=== PATIENT | female | born 1935 | race Caucasian/White ===

== ENCOUNTER 2019-05-19 05:09 | Emergency (ER) | payer OTHER ==
[~2019-05-19] VITALS: Ht 152.4 cm; Wt 68.0 kg
[2019-05-19 05:09] VITALS: BP_SYST 128
[~2019-05-19 05:09] MED LIST: ASA81 PO; HYDR-1189 PO; HYDR-4100 PO; LIP20 PO; METF-381 PO; OMEP20CA10 PO; SPIR25TA6 PO; SUVO15TA PO
[2019-05-19] MEDS ORDERED: ESCI20TA PO (05:28)
[2019-05-19] MEDS ORDERED: GLIP5TAB13 PO (05:28)
[2019-05-19] MEDS ORDERED: FURO-149 PO (05:29)
[2019-05-19] MEDS ORDERED: CANA300T PO (05:30)
[2019-05-19] MEDS ORDERED: PALB125C PO (05:30)
[2019-05-19] MEDS ORDERED: FEM2.5 PO (05:31)
[2019-05-19] MEDS ORDERED: MAGN500T2 PO (05:32)
[2019-05-19] MEDS ORDERED: CHOL500037 PO (05:33)
[2019-05-19] MEDS ORDERED: ACET-2634 PO (05:34)
[2019-05-19] MEDS ORDERED: LOPE2CAP PO (05:36)
[2019-05-19] MEDS ORDERED: ZOLE4VIA18 IV (05:37)
[2019-05-19 06:21] LABS: WHITE BLOOD COUNT (AUTO) 5.7 K/uL (4.8-10.8)
[2019-05-19 06:25] LABS: BASOPHILS % (AUTO) 0.3 % (0.0-2.0); HEMATOCRIT 35.6 % (36-48); HEMOGLOBIN 12.2 g/dL (12.0-16.0); LYMPHOCYTES # (AUTO) 1.6 K/uL (1.0-5.5); LYMPHOCYTES % (AUTO) 28.4 % (20.5-51.5); MEAN CORPUSCULAR HEMOGLOBIN 39 pg (27-31); MEAN CORPUSCULAR HGB CONC 34 % (32-36); MEAN CORPUSCULAR VOLUME 113 fL (79.0-98.0); MONOCYTES % (AUTO) 17.3 % (1.7-9.3); NEUTROPHILS # (AUTO) 3.1 K/uL (1.8-7.7); PLATELET COUNT (AUTO) 225 K/uL (130-430); RED BLOOD CELL COUNT(AUTO) 3.15 MIL/uL (4.2-6.2); RED CELL DISTRIBUTION WIDTH 17.2 % (9.0-15.0)
[2019-05-19 06:37] LABS: ANION GAP 12 (5-15); CALCIUM 8.9 mg/dL (8.4-11.0); CHLORIDE 93 mmol/L (98-107); CREATININE 1.89 mg/dL (0.55-1.30); GLUCOSE 233 mg/dL (70-99); POTASSIUM 3.4 mmol/L (3.5-5.1); SODIUM SERUM 132 mmol/L (136-145); UREA NITROGEN, BLOOD 15 mg/dL (8-21)
[2019-05-19 06:42] LABS: ALANINE AMINOTRANSFERASE 60 U/L (12-78); ASPARTATE AMINOTRANSFERASE 115 U/L (10-37); TOTAL BILIRUBIN 1.3 mg/dL (0.0-1.0)
[2019-05-19 07:00] LABS: BILIRUBIN,URINE NEGATIVE (NEGATIVE); BLOOD, URINE NEGATIVE (NEGATIVE); CLARITY/URINE CLEAR (CLEAR); COLOR,URINE YELLOW (YELLOW); GLUCOSE,URINE 3+ (NEGATIVE); KETONES,URINE TRACE (NEGATIVE); LEUKOCYTE ESTERASE ,URINE NEGATIVE (NEGATIVE); NITRITE, URINE NEGATIVE (NEGATIVE); PROTEIN URINE NEGATIVE (NEGATIVE); UROBILINOGEN,URINE 0.2 (0.2-1.0)
[2019-05-19 07:02] LABS: BACTERIA,URINE FEW /HPF (None Seen); MUCUS,URINE 1+ /LPF (None Seen); RBC,URINE 0-3 /HPF (0-3)
[2019-05-19 07:20] VITALS: BP_SYST 128
[2019-05-19 07:24] LABS: INR 1.1 (0.8-1.2); PROTHROMBIN TIME 11.3 SECS (9.5-12.5)
== END 2019-05-19 07:20 | disposition home or self-care (01) ==
LOC: SED 05:09
DX: S00.03XA Contusion of scalp, initial encounter (principal); E11.9 Type 2 diabetes mellitus without complications; I13.0 Hypertensive heart and chronic kidney disease with heart failure and stage 1 through stage 4 chronic kidney disease, or unspecified chronic kidney disease; N18.9 Chronic kidney disease, unspecified; E87.5 Hyperkalemia; W19.XXXA Unspecified fall, initial encounter; Y93.89 Activity, other specified; Y92.091 Bathroom in other non-institutional residence as the place of occurrence of the external cause; Y99.8 Other external cause status
CPT/HCPCS: 36415; 70450-TC; 71045; 80053; 81000-TC; 84484; 85025; 85610-TC; 85730-TC; 87086; 93005; 99284

== ENCOUNTER 2019-06-14 10:53 | Emergency (ER) | payer OTHER ==
[~2019-06-14] VITALS: Ht 157.5 cm; Wt 72.6 kg
[2019-06-14 10:53] VITALS: BP_SYST 119
[~2019-06-14 10:53] MED LIST changes: +ACET-2634 PO; +CANA300T PO; +CHOL500037 PO; +ESCI20TA PO; +FEM2.5 PO; +FURO-149 PO; +GLIP5TAB13 PO; -HYDR-1189 PO; -HYDR-4100 PO; +LOPE2CAP PO; +MAGN500T2 PO; -OMEP20CA10 PO; +PALB125C PO; -SUVO15TA PO; +ZOLE4VIA18 IV
--- NOTE | 2019-06-14 11:00 | NUR ---
BROUGHT IN BY [facility], PLACED IN BED #6 AND TRIAGED. REPORT GIVEN TO CJ
--- NOTE | 2019-06-14 11:01 | NUR ---
PT IS RESIDENT OF [facility].
--- NOTE | 2019-06-14 11:40 | NUR ---
ER at bedside examining patient.
--- NOTE | 2019-06-14 12:00 | NUR ---
Patient presented to C/O PAIN TO BACK OF HEAD. Patient awake, alert. Patient brought in by BLS from [facility] PER MEDICS, PT HAD UNWITNESSED FALL. Patient denies pain, denies N/v/D. Patient not able to provide health hx, patient not able to provide details of fall.
--- NOTE | 2019-06-14 14:50 | NUR ---
ER Dr. Gordon at bedside examining patient.
--- NOTE | 2019-06-14 15:00 | NUR ---
venipuncture at bedside
[2019-06-14 15:14] LABS: HEMATOCRIT 36.5 % (36-48); HEMOGLOBIN 12.3 g/dL (12.0-16.0); MEAN CORPUSCULAR HEMOGLOBIN 38 pg (27-31); MEAN CORPUSCULAR HGB CONC 34 % (32-36); MEAN CORPUSCULAR VOLUME 112 fL (79.0-98.0); PLATELET COUNT (AUTO) 117 K/uL (130-430); RED BLOOD CELL COUNT(AUTO) 3.26 MIL/uL (4.2-6.2); RED CELL DISTRIBUTION WIDTH 20.3 % (9.0-15.0); WHITE BLOOD COUNT (AUTO) 4.1 K/uL (4.8-10.8)
[2019-06-14 15:30] LABS: ALANINE AMINOTRANSFERASE 151 U/L (12-78); ALBUMIN 2.5 g/dL (3.4-4.8); ASPARTATE AMINOTRANSFERASE 394 U/L (10-37); CALCIUM 8.3 mg/dL (8.4-11.0); CHLORIDE 94 mmol/L (98-107); CREATININE 2.15 mg/dL (0.55-1.30); GLUCOSE 162 mg/dL (70-99); POTASSIUM 3.3 mmol/L (3.5-5.1); SODIUM SERUM 132 mmol/L (136-145); TOTAL BILIRUBIN 0.9 mg/dL (0.0-1.0); UREA NITROGEN, BLOOD 43 mg/dL (8-21)
[2019-06-14 15:41] LABS: ANION GAP 11 (5-15)
[2019-06-14 15:50] VITALS: BP_SYST 119
--- NOTE | 2019-06-14 15:50 | NUR ---
Patient given written and verbal discharge instructions and verbalizes understanding. ER MD discussed with patient the results and treatment provided. Patient in stable condition. ID arm band removed. No Rx given. Patient educated on pain management and to follow up with PMD. Pain Scale0/10 . Opportunity for questions provided and answered. Medication side effect fact sheet provided.
[2019-06-14 16:50] LABS: BAND % (MANUAL) 2 % (0-6); BASOPHILS % (MANUAL) 0 % (0-2); EOSINOPHILS % (MANUAL) 0 % (0-7); LYMPHOCYTES % (MANUAL) 54 % (20-46); MONOCYTES % (MANUAL) 10 % (0-11)
== END 2019-06-14 15:50 | disposition home or self-care (01) ==
LOC: SED 10:53
DX: S09.90XA Unspecified injury of head, initial encounter (principal); I10 Essential (primary) hypertension; E11.9 Type 2 diabetes mellitus without complications; J44.9 Chronic obstructive pulmonary disease, unspecified; Z88.0 Allergy status to penicillin; Z79.84 Long term (current) use of oral hypoglycemic drugs; Z79.82 Long term (current) use of aspirin; Z79.899 Other long term (current) drug therapy; W19.XXXA Unspecified fall, initial encounter; Y93.89 Activity, other specified; Y92.89 Other specified places as the place of occurrence of the external cause; Y99.8 Other external cause status
CPT/HCPCS: 36415; 70450-TC; 80053; 82378; 85007; 85027; 99284

== ENCOUNTER 2019-06-17 09:41 | Inpatient (IN) | payer OTHER ==
[~2019-06-17] VITALS: Ht 152.4 cm; Wt 62.2 kg
[2019-06-17] MEDS ORDERED: NACL 0.9% 1,000 ML IV ONE (09:43)
[2019-06-17 09:45] VITALS: BP_SYST 136
--- NOTE | 2019-06-17 09:45 | NUR ---
Placed in room 2 . Placed on compliance monitor, blood pressure machine and pulse oximeter. To gown for exam. Side rails up. Assumed care.
--- NOTE | 2019-06-17 09:55 | NUR ---
Patient arrived via [facility] ambulance, patient calm and cooperative. Sent by [facility] with c/c of hyperglycemia. Upon report, patient was found on floor s/p assumed fall. Patient unable to recall falling. Glucose was checked at it was >400mg/dl. Patient glucose level was checked upon arrival at 210mg/dl. Patient AAO. Patient has pitting edema to bilateral lower extremities. Will continue to follow up and monitor.
[2019-06-17] MEDS ORDERED: INSULIN REGULAR, HUMAN 10 UNITS/0.1 ML INJ IVP ONE (10:00)
--- NOTE | 2019-06-17 10:00 | NUR ---
ER at bedside examining patient.
[2019-06-17 10:25] LABS: BASOPHILS % (AUTO) 0.5 % (0.0-2.0); EOSINOPHILS % (AUTO) 0.2 % (0.0-4.0); HEMATOCRIT 37.8 % (36-48); HEMOGLOBIN 12.8 g/dL (12.0-16.0); LYMPHOCYTES # (AUTO) 3.1 K/uL (1.0-5.5); LYMPHOCYTES % (AUTO) 39.6 % (20.5-51.5); MEAN CORPUSCULAR HEMOGLOBIN 38 pg (27-31); MEAN CORPUSCULAR HGB CONC 34 % (32-36); MEAN CORPUSCULAR VOLUME 112 fL (79.0-98.0); MONOCYTES # (AUTO) 1.1 K/uL (0.0-1.0); MONOCYTES % (AUTO) 14.6 % (1.7-9.3); NEUTROPHILS # (AUTO) 3.5 K/uL (1.8-7.7); NEUTROPHILS % (AUTO) 45.1 % (40.0-70.0); PLATELET COUNT (AUTO) 130 K/uL (130-430); RED BLOOD CELL COUNT(AUTO) 3.39 MIL/uL (4.2-6.2); RED CELL DISTRIBUTION WIDTH 20.7 % (9.0-15.0); WHITE BLOOD COUNT (AUTO) 7.8 K/uL (4.8-10.8)
--- NOTE | 2019-06-17 10:35 | NUR ---
# 14 FR In and Out catheter with use of sterile technique. Immediate return of 800 ml Dark yellow slighty cloudy urine noted. Urine sample collected and sent to lab. Pt tolerated procedure well.
[2019-06-17 10:36] LABS: ANION GAP 12 (5-15); CALCIUM 9.2 mg/dL (8.4-11.0); CHLORIDE 91 mmol/L (98-107); CREATININE 2.11 mg/dL (0.55-1.30); GLUCOSE 193 mg/dL (70-99); SODIUM SERUM 128 mmol/L (136-145); UREA NITROGEN, BLOOD 39 mg/dL (8-21)
[2019-06-17 10:40] LABS: INR 1.3 (0.8-1.2); PROTHROMBIN TIME 12.9 SECS (9.5-12.5)
[2019-06-17 10:42] LABS: ALANINE AMINOTRANSFERASE 206 U/L (12-78); ALBUMIN 2.6 g/dL (3.4-4.8); AMYLASE 60 U/L (0-100); ASPARTATE AMINOTRANSFERASE 489 U/L (10-37); LIPASE 206 U/L (73-393); TOTAL BILIRUBIN 1.6 mg/dL (0.0-1.0)
[2019-06-17 10:45] LABS: ALCOHOL, BLOOD < 3 mg/dL (<10); POTASSIUM 2.6 mmol/L (3.5-5.1)
--- NOTE | 2019-06-17 10:45 | NUR ---
Patient taken to CT scan via [place], escorted by tech. Patient calm and cooperative. Will continue to follow up upon return to room.
--- NOTE | 2019-06-17 10:55 | NUR ---
Patient arrived back to room, patient placed on quality assurance monitor final and patient has no complaints at this time. Will continue to follow up and monitor.
[2019-06-17 11:00] LABS: BILIRUBIN,URINE NEGATIVE (NEGATIVE); BLOOD, URINE 2+ (NEGATIVE); CLARITY/URINE CLEAR (CLEAR); COLOR,URINE YELLOW (YELLOW); GLUCOSE,URINE 3+ (NEGATIVE); KETONES,URINE NEGATIVE (NEGATIVE); LEUKOCYTE ESTERASE ,URINE NEGATIVE (NEGATIVE); NITRITE, URINE NEGATIVE (NEGATIVE); PROTEIN URINE 1+ (NEGATIVE); UROBILINOGEN,URINE 0.2 (0.2-1.0)
[2019-06-17] MEDS ORDERED: POTASSIUM CHLORIDE 20 MEQ TAB.PRT.SR PO ONE (11:00)
[2019-06-17] MEDS ORDERED: KCL 20 mEq in 100 mL (PREMIX) 100 ML IV ONE (11:00)
[2019-06-17 11:13] LABS: CKMB RELATIVE INDEX 0.2 (0.0-2.9); CREATINE KINASE MB 1.5 ng/mL (0-3.6)
[2019-06-17 11:20] LABS: BACTERIA,URINE FEW /HPF (None Seen); BARBITURATE, URINE NEGATIVE (NEG <=200); BENZODIAZEPINE, URINE NEGATIVE (NEG <=150); CANNABINOID, URINE NEGATIVE (NEG <=50); COCAINE, URINE NEGATIVE (NEG <=150); METHAMPHETAMINES SCREEN,URINE NEGATIVE (NEG <=500); MUCUS,URINE 1+ /LPF (None Seen); OPIATE, URINE NEGATIVE (NEG <=100); PHENCYCLIDINE SCREEN,URINE NEGATIVE (NEG <=25); UR TRICYCLIC ANTIDEPRESSANTS NEGATIVE (NEG <=300); URINE AMPHETAMINE NEGATIVE (NEG <=500); URINE METHADONE NEGATIVE (NEG <=200); URINE OXYCODONE SCREEN NEGATIVE (NEG <=100); URINE PROPOXYPHENE SCREEN NEGATIVE (NEG <=300)
[2019-06-17] MEDS ORDERED: POTASSIUM CHLORIDE 20 MEQ/PKT PACKET ONE (11:29)
[2019-06-17] MEDS ORDERED: NACL 0.9% 2,000 ML IV ONE (11:45)
[2019-06-17] MEDS ORDERED: LEVOFLOXACIN 500 MG/D5W 100 ML IV ONE (11:45)
--- NOTE | 2019-06-17 12:00 | NUR ---
Orders recieved from Dr. Kenji Dubose, orders entered by JOJO.
--- NOTE | 2019-06-17 12:07 | NUR ---
Patient will be admitted to care of DR. Kenji AGUIRRE. Admitted to Telemetry unit. Will go to room 132A. Belongings list completed. Summary report printed. Report will be given at bedside.
[2019-06-17] MEDS ORDERED: ONDANSETRON HCL 4 MG/2 ML VIAL IVP PRN (12:15)
[2019-06-17] MEDS ORDERED: ACETAMINOPHEN 325 MG TABLET PO PRN (12:15)
[2019-06-17] MEDS ORDERED: ALBUTEROL SULFATE 0.083% 2.5 MG/3 ML VIAL.NEB INH PRN (12:15)
[2019-06-17 12:28] VITALS: BP_SYST 122
[2019-06-17 12:46] VITALS: BP_SYST 127
--- NOTE | 2019-06-17 12:46 | NUR ---
ADMISSION NOTE Received patient from ER via jude, received report from MAHESH URIBE. Patient admitted with diagnosis of PNEUMONIA/CHF. Patient oriented to hospital routine, call light, toileting and safety-patient verbalized understanding.
--- NOTE | 2019-06-17 13:01 | NUR ---
CONSULTATION PAGED/CALLED Reason for Consultation: [] CHF Person Who was Notified: [] LEATHA Consulting Physician: [] DR LI Content Checker Specialty: [] CARDIOLOGY Ordering Physician: [] DR Angie AGUIRRE
--- NOTE | 2019-06-17 13:04 | NUR ---
CONSULTATION PAGED/CALLED Reason for Consultation: [] CHF, SOB, PNA Person Who was Notified: [] DYLAN Consulting Physician: [] DR Adán STRONG Supervisory Forester Specialty: [] PULMONOLOGY Ordering Physician: [] DR Angie AGUIRRE
--- NOTE | 2019-06-17 13:06 | NUR ---
CONSULTATION PAGED/CALLED Reason for Consultation: [] CHF Person Who was Notified: [] DYLAN Consulting Physician: [] DR SHAH DIGITAL COORDINATOR FOR DR TAYLOR Process Coordinator Specialty: [] NEPHROLOGY Ordering Physician: [] DR Angie AGUIRRE
[2019-06-17] MEDS ORDERED: D5W 1,000 ML IV PRN (13:15)
[2019-06-17] MEDS ORDERED: DEXTROSE 50%-WATER 50 ML DISP.SYRIN IVP PRN (13:15)
[2019-06-17] MEDS ORDERED: GLUCOSE 15 GM GEL (in 37.5 GM TUBE) PO PRN (13:15)
--- NOTE | 2019-06-17 13:20 | NUR ---
patient came alert awake x 1-2. but confused. breathing even and unlabored. lungs bilaterally diminished at the bases. on room air. O2Sat 94%. vitals signs stable. afebrile. abdomen soft and non distended. has 2 two iv accesses at the right forearm #22. w/ potassium iv hanging at 40cc/hr infusing on well. and left ac #20 has iv fluids of Normal Saline at 100cc/hr infusing on well. w/levaquin iv antibiotic started in ER.son at the bedside. bed low position, alarmed and locked. call lights within reach. son at the bedside. admission data, assessment was completed. and documented
[2019-06-17 13:35] LABS: CKMB RELATIVE INDEX 0.2 (0.0-2.9); CREATINE KINASE MB 1.6 ng/mL (0-3.6)
--- NOTE | 2019-06-17 14:30 | NUR ---
Azithromycin iv antibiotic hanged at this time.
[2019-06-17] MEDS: AZITHROMYCIN 500 MG in NS 250 ML IV SCH (14:46)
[2019-06-17 15:03] VITALS: BP_SYST 109
--- NOTE | 2019-06-17 15:30 | NUR ---
rocephin iv antibiotic given.
[2019-06-17] MEDS: cefTRIAXone 1 GM in D5W 50 ML IV SCH (15:55)
--- NOTE | 2019-06-17 16:15 | NUR ---
turn to sides. and apply z guard on the vaginal area redness and buttocks right and left areas.
[2019-06-17 17:02] VITALS: BP_SYST 114
--- NOTE | 2019-06-17 18:18 | NUR ---
family at the bedside. patient refused to eat the food tray, she wants salad and juice and water, cranberry, jello red. hob elevated
--- NOTE | 2019-06-17 18:28 | NUR ---
still on desk monitor sinus rthythm 80-90's. no ectopy noted. will continue to monitor patients status.
--- NOTE | 2019-06-17 18:29 | NUR ---
please follow up consult x 3.
--- NOTE | 2019-06-17 18:53 | NUR ---
dr tinoco as cardiology consult came and evaluate the patient.
--- NOTE | 2019-06-17 19:25 | NUR ---
sbar report given to Prema URIBE
--- NOTE | 2019-06-17 19:46 | NUR ---
OPENING NOTE Received patient resting in bed, w/ eyes closed and presently calm. No sign of distress, non-labored breathing on room air. IV to LFA is SL. Bed is locked to lowest position, side rails up 3x, bed alarm on and call light w/in reach. Updated board.
[2019-06-17 20:00] VITALS: BP_SYST 123
[2019-06-17 20:51] LABS: CKMB RELATIVE INDEX 0.3 (0.0-2.9); CREATINE KINASE MB 1.4 ng/mL (0-3.6)
--- NOTE | 2019-06-17 21:20 | NUR ---
Patient care Patient had bowel movement and assisted nurse assistant broker with stanley-care, bed bath, and linen change. Patient was cooperative. Resting in comfortable position. I remain in room with patient.
--- NOTE | 2019-06-17 21:39 | NUR ---
Dr. Schwartz rounds Dr. Schwartz is at bedside to see patient. He reviewed chart and ordered Normal Saline at 30 ml/hr.
[2019-06-17] MEDS: INSULIN LISPRO SLIDING SCALE 100 UNITS/ML VIAL (humaLOG) SUBCUT PRN (21:50)
--- NOTE | 2019-06-17 21:51 | NUR ---
Fingerstick BG test FBG test done with result of 185mg/dL. Administered 2units of insulin per sliding scale order. Patient cooperated and tolerated.
--- NOTE | 2019-06-17 22:35 | NUR ---
IVF IVF fluid, NS infusing at 30 ml/hr, as ordered by Dr. Schwartz. IV site on LAC alarmed frequently d/t patient bending arm and presently infusing via IV on RFA.
[2019-06-18] MEDS: NACL 0.9% 1,000 ML IV SCH ×2 (00:05→22:30)
[2019-06-18 00:23] VITALS: BP_SYST 116
--- NOTE | 2019-06-18 00:24 | NUR ---
Rounds Patient momentarily awakened, repositioned for comfort. IVF infusing well. Non labored breathing, will continue to monitor.
--- NOTE | 2019-06-18 02:30 | NUR ---
IV alarming IV alarming, tubing bent/kinked, it was straightened out. Patient repositioned, patient is cooperative and denies pain. No further needs at this time.
--- NOTE | 2019-06-18 04:30 | NUR ---
Methane Gas Collection System Operator Methane Gas Collection System Operator at bedside for lab draw. Patient voiced discomfort, though tolerated and cooperated.
--- NOTE | 2019-06-18 06:24 | NUR ---
PAGED DR. SHAH PER NURSE DIALED [phone] SPOKE TO CAROLYN
--- NOTE | 2019-06-18 06:29 | NUR ---
Dr. Schwartz S/W Dr. Schwartz, notified, patient incontinent and unable to collect UA sample, gave order for straight cath, read-back.
--- NOTE | 2019-06-18 06:29 | NUR ---
Fingerstick BG test FBG test done with result of 95mg/dL. no insulin per sliding scale order. Patient cooperated and tolerated.
[2019-06-18 06:36] LABS: ALANINE AMINOTRANSFERASE 152 U/L (12-78); ALBUMIN 1.8 g/dL (3.4-4.8); ANION GAP 6 (5-15); ASPARTATE AMINOTRANSFERASE 338 U/L (10-37); CALCIUM 8.4 mg/dL (8.4-11.0); CHLORIDE 101 mmol/L (98-107); CHOLESTEROL 83 mg/dL (<200); CREATININE 1.53 mg/dL (0.55-1.30); GLUCOSE 86 mg/dL (70-99); HDL CHOLESTEROL 17 mg/dL (>55); LDL CHOLESTEROL 49 mg/dL (<100); SODIUM SERUM 134 mmol/L (136-145); TRIGLYCERIDES 77 mg/dL (30-150); UREA NITROGEN, BLOOD 28 mg/dL (8-21)
--- NOTE | 2019-06-18 06:40 | NUR ---
CLOSING NOTE Patient resting in bed, w/ eyes closed and presently calm. No sign of distress, non-labored breathing on room air. IV to LAC is SL. IVF infusing well via RFA. Bed is locked to lowest position, side rails up 3x, bed alarm on and call light w/in reach. Direct observer is in room with patient.
--- NOTE | 2019-06-18 07:10 | NUR ---
Nutrition Update Dalton Scale 14 noted. Pt admitted for Pneumonia and Congestive Heart Failure Diet: Cardiac Low CHOL Low Fat 2gm Na BMI: 26.3 kg/m2 RD to follow per nutrition care standards.
[2019-06-18 07:24] VITALS: BP_SYST 104
--- NOTE | 2019-06-18 07:35 | NUR ---
OPENING NOTES: RECEIVED PATIENT FROM CUSTOMER EXPERIENCE INTERN NURSE. PATIENT IS ASLEEP IN BED. NO SIGNS OF DISTRESS OR SHORTNESS OF BREATH NOTED. IV SITE IS PATENT WITH NO SIGNS OF INFILTRATION. PATIENT IS TOLERATING OXYGEN AT ROOM AIR. PATIENT IN STABLE CONDITION. SAFETY AND FALL PRECAUTIONS ARE IN PLACE. BED LOCKED IN LOWEST POSITION WITH CALL LIGHT IN REACH. WILL CONTINUE TO MONITOR PATIENT FOR ANY CHANGES.
[2019-06-18 09:25] LABS: HEMATOCRIT 31.4 % (36-48); HEMOGLOBIN 10.7 g/dL (12.0-16.0); MEAN CORPUSCULAR HEMOGLOBIN 38 pg (27-31); MEAN CORPUSCULAR HGB CONC 34 % (32-36); PLATELET COUNT (AUTO) 109 K/uL (130-430); RED BLOOD CELL COUNT(AUTO) 2.78 MIL/uL (4.2-6.2); RED CELL DISTRIBUTION WIDTH 20.8 % (9.0-15.0); WHITE BLOOD COUNT (AUTO) 6.6 K/uL (4.8-10.8)
[2019-06-18 09:27] LABS: MEAN CORPUSCULAR VOLUME 113 fL (79.0-98.0)
[2019-06-18 09:49] LABS: ATYPICAL LYMPHOCYTES % 0 % (0-0); BAND % (MANUAL) 3 % (0-6); BASOPHILS % (MANUAL) 0 % (0-2); EOSINOPHILS % (MANUAL) 0 % (0-7); LYMPHOCYTES % (MANUAL) 30 % (20-46); MONOCYTES % (MANUAL) 11 % (0-11); MYELOCYTES % 1 % (0-0)
[2019-06-18] MEDS ORDERED: POTASSIUM CHLORIDE 20 MEQ TAB.PRT.SR PO ONE (10:00)
[2019-06-18] MEDS: ASPIRIN 81 MG TAB.CHEW PO SCH (10:04)
[2019-06-18] MEDS: ENOXAPARIN SODIUM 30 MG/0.3 ML SYRINGE SUBCUT SCH (10:05)
--- NOTE | 2019-06-18 10:44 | NUR ---
RN ROUNDS: PATIENT IS AWAKE AND ALERT x2 IN BED. PATIENT DENIES ANY PAIN. NO SIGNS OF DISTRESS OR SHORTNESS OF BREATH NOTED. PATIENT IN STABLE CONDITION. WILL CONTINUE TO MONITOR PATIENT FOR ANY CHANGES.
[2019-06-18 11:27] VITALS: BP_SYST 108
[2019-06-18] MEDS: INSULIN LISPRO SLIDING SCALE 100 UNITS/ML VIAL (humaLOG) SUBCUT PRN ×2 (11:56→21:57)
--- NOTE | 2019-06-18 12:25 | NUR ---
RN ROUNDS: PATIENT IS ASLEEP IN BED. NO SIGNS OF DISTRESS OR SHORTNESS OF BREATH NOTED. PATIENT IS TOLERATING OXYGEN AT ROOM AIR. PATIENT IN STABLE CONDITION. WILL CONTINUE TO MONITOR PATIENT FOR ANY CHANGES.
[2019-06-18 13:00] VITALS: BP_SYST 113
--- NOTE | 2019-06-18 14:20 | NUR ---
RN ROUNDS: PATIENT IS ASLEEP IN BED. NO SIGNS OF DISTRESS OR SHORTNESS OF BREATH NOTED. PATIENT IN STABLE CONDITION. WILL CONTINUE TO MONITOR PATIENT FOR ANY CHANGES.
[2019-06-18] MEDS: AZITHROMYCIN 500 MG in NS 250 ML IV SCH (14:53)
[2019-06-18] MEDS: cefTRIAXone 1 GM in D5W 50 ML IV SCH (15:39)
[2019-06-18 17:18] VITALS: BP_SYST 108
--- NOTE | 2019-06-18 18:55 | NUR ---
CLOSING NOTES: PATIENT IS AWAKE AND ALERT x2 IN BED. FAMILY AT BEDSIDE. NO SIGNS OF DISTRESS OR SHORTNESS OF BREATH NOTED. IV SITE IS PATENT WITH NO SIGNS OF INFILTRATION. PATIENT IS TOLERATING OXYGEN AT ROOM AIR. PATIENT IN STABLE CONDITION. SAFETY AND FALL PRECAUTIONS ARE IN PLACE. BED LOCKED IN LOWEST POSITION WITH CALL LIGHT IN REACH. WILL ENDORSE PATIENT TO ONCOMING COLD MEAT CHEF NURSE.
--- NOTE | 2019-06-18 19:30 | NUR ---
Opening notes Received report. Patient is resting in bed. No signs of distress noted. Breathing even and unlabored. IV patent and intact, infusing fluids. Daughter Gabriela and Son Carl at the bedside and updated on plan of care. Call light with the patient. Safety precautions in place.
[2019-06-18 19:59] VITALS: BP_SYST 121
--- NOTE | 2019-06-18 21:55 | NUR ---
Accucheck 289 insulin given per sliding scale. No signs of allergic reaction noted. No other needs. Call light with the patient. Safety precautions in place.
[2019-06-18 22:28] LABS: URINE SODIUM, RANDOM 9 mmol/L (40-220)
[2019-06-19] MEDS: NACL 0.9% 1,000 ML IV SCH (00:36)
--- NOTE | 2019-06-19 00:41 | NUR ---
Sleeping Patient sleeping. No signs of distress noted. Breathing even and unlabored. New bag of IVF hung. Call light with the patient. Safety precautions in place.
[2019-06-19 01:21] VITALS: BP_SYST 118
--- NOTE | 2019-06-19 02:24 | NUR ---
Awake Patient is awake, resting comfortably in bed. No signs of distress noted. Breathing even and unlabored. IVF infusing well. No needs at this time. Call light with the patient. Safety precautions in place.
--- NOTE | 2019-06-19 04:30 | NUR ---
Resting Patient resting in bed. Hygiene care provided. Patient tolerated well. No signs of distress noted. Breathing even and unlabored. Call light with the patient. Safety precautions in place.
--- NOTE | 2019-06-19 05:47 | NUR ---
IV on RFA removed Catheter tip is intact and discarded. No active bleeding noted. IV on LAC is patent and intact, flushes well. IVF resumed. Patient complains "My stomach hurts." Offered patient pain medicine. Patient states "I will wait." No other needs. Call light with the patient. Safety precautions in place.
[2019-06-19] MEDS: INSULIN LISPRO SLIDING SCALE 100 UNITS/ML VIAL (humaLOG) SUBCUT PRN ×4 (06:11→21:22)
--- NOTE | 2019-06-19 06:24 | NUR ---
Closing notes Patient resting in bed. No signs of distress noted. Breathing even and unlabored. IV patent and intact, infusing fluids. Accucheck 155. Insulin given per sliding scale. Provided patient with snack until breakfast arrives. All needs met through out the shift. Call light with the patient. Safety precautions in place. Will endorse care to day shift RN.
--- NOTE | 2019-06-19 07:35 | NUR ---
Opening note Patient resting in bed at this time, A/Ox2, no complaints of pain. No SOB. Iv patent, intact and infusing fluids as ordered. no adverse side effects noted. No infiltration noted. On safety and aspiration precautions, HOB kept elevated, bed alarm on, bed in lowest position, 3 side rails up. Call light within reach. Patient in stable condition. Will continue to monitor.
[2019-06-19 08:30] VITALS: BP_SYST 137
--- NOTE | 2019-06-19 09:30 | NUR ---
Medications All morning medications given as ordered. No adverse side effects noted. No nausea, no vomiting noted.
[2019-06-19] MEDS: ASPIRIN 81 MG TAB.CHEW PO SCH (09:33)
[2019-06-19] MEDS: ENOXAPARIN SODIUM 30 MG/0.3 ML SYRINGE SUBCUT SCH (09:33)
--- NOTE | 2019-06-19 11:20 | NUR ---
Physical therapy patient ambulated with walker, and minimal assistance with PT. Patient only able to walk few steps from the bed to the bedside chair.
[2019-06-19 12:30] VITALS: BP_SYST 125
--- NOTE | 2019-06-19 13:30 | NUR ---
Lunch Patient sitting up in bed at this time, eating lunch. Tolerating well. no nausea, no vomiting noted.
[2019-06-19] MEDS: AZITHROMYCIN 500 MG in NS 250 ML IV SCH (13:40)
--- NOTE | 2019-06-19 13:41 | NUR ---
Dietitian Recommendations * Recommend advancing to cardiac [facility] diet and supplement Glucerna BID (440 kcal/day and 20 gm protein /day). * Encourage PO intake. Please see Nutritional Assessment for details. BAM, RD
--- NOTE | 2019-06-19 14:00 | NUR ---
IV infiltration Iv infiltrated. New IV placed on right wrist gauge 22.
[2019-06-19] MEDS: cefTRIAXone 1 GM in D5W 50 ML IV SCH (15:02)
[2019-06-19 16:00] VITALS: BP_SYST 132
--- NOTE | 2019-06-19 16:04 | NUR ---
Linen changed Linens changed, skin care provided. No complaints of pain. Patient resting comfortably in bed. No SOB.
--- NOTE | 2019-06-19 18:15 | NUR ---
Closing note Patient sitting up in bed at this time, eating dinner. No nausea, no vomiting. No complaints of abdominal discomfort. No complaints of pain. No SOB. Iv patent, intact. no adverse side effects noted. No infiltration noted. On safety and aspiration precautions, HOB kept elevated, bed alarm on, bed in lowest position, 3 side rails up. Call light within reach.Patient awaiting discharge. Patient to be discharged once bed is available at SNF. Patient in stable condition. All needs met.
--- NOTE | 2019-06-19 19:30 | NUR ---
Opening notes Received report. Patient is resting in bed, no signs of distress noted. Breathing even and unlabored. IV patent and intact, saline locked. Patient ambulated to bathroom with minimal assist using walker. Daughter Gabriela and Son Carl are bedside. Updated on plan of care. Call light with the patient. Safety precautions in place.
[2019-06-19 20:00] VITALS: BP_SYST 130
--- NOTE | 2019-06-19 21:30 | NUR ---
Accucheck 258 Insulin given per sliding scale. Patient tolerated well. No adverse effects noted. No other needs. Call light with the patient. Safety precautions in place.
--- NOTE | 2019-06-19 22:50 | NUR ---
Patient moved to 120A Patient and patient belongings moved to 120A. Patient tolerated well. No signs of distress noted. Call light with the patient. Safety precautions in place.
[2019-06-20] VITALS (7 sets, daily range): BP systolic 122–129
--- NOTE | 2019-06-20 00:30 | NUR ---
Sleeping No signs of distress noted. Breathing even and unlabored. Call light with the patient. Safety precautions in place.
--- NOTE | 2019-06-20 02:30 | NUR ---
Sleeping Patient repositioned to comfort. No signs of distress noted. Breathing even and unlabored. Call light with the patient. Safety precautions in place.
--- NOTE | 2019-06-20 04:47 | NUR ---
Sleeping No signs of distress noted. Breathing even and unlabored. IV patent and intact, no signs of infiltration noted. Call light with the patient. Safety precautions in place.
[2019-06-20 06:32] LABS: BASOPHILS # (AUTO) 0.1 K/uL (0.0-0.2); BASOPHILS % (AUTO) 0.9 % (0.0-2.0); EOSINOPHILS # (AUTO) 0.1 K/uL (0.0-0.4); EOSINOPHILS % (AUTO) 0.7 % (0.0-4.0); HEMATOCRIT 34.7 % (36-48); HEMOGLOBIN 11.6 g/dL (12.0-16.0); LYMPHOCYTES # (AUTO) 2.7 K/uL (1.0-5.5); LYMPHOCYTES % (AUTO) 34.2 % (20.5-51.5); MEAN CORPUSCULAR HEMOGLOBIN 38 pg (27-31); MEAN CORPUSCULAR HGB CONC 34 % (32-36); MEAN CORPUSCULAR VOLUME 112 fL (79.0-98.0); MONOCYTES # (AUTO) 0.7 K/uL (0.0-1.0); MONOCYTES % (AUTO) 9.4 % (1.7-9.3); NEUTROPHILS # (AUTO) 4.3 K/uL (1.8-7.7); NEUTROPHILS % (AUTO) 54.8 % (40.0-70.0); PLATELET COUNT (AUTO) 107 K/uL (130-430); RED CELL DISTRIBUTION WIDTH 21.1 % (9.0-15.0); WHITE BLOOD COUNT (AUTO) 7.8 K/uL (4.8-10.8)
[2019-06-20] MEDS: INSULIN LISPRO SLIDING SCALE 100 UNITS/ML VIAL (humaLOG) SUBCUT PRN ×4 (06:40→21:17)
--- NOTE | 2019-06-20 06:45 | NUR ---
Closing notes Patient resting comfortably in bed. No signs of distress noted. Breathing even and unlabored. IV patent and intact, no signs of infiltration noted. Accucheck 163. Insulin given per sliding scale. Snack provided to patient. All needs met throughout the shift. Call light with the patient. Safety precautions in place. Will endorse care to day shift RN.
[2019-06-20 07:06] LABS: ALANINE AMINOTRANSFERASE 163 U/L (12-78); ALBUMIN 1.8 g/dL (3.4-4.8); ANION GAP 10 (5-15); ASPARTATE AMINOTRANSFERASE 343 U/L (10-37); CALCIUM 9.4 mg/dL (8.4-11.0); CHLORIDE 106 mmol/L (98-107); CREATININE 1.37 mg/dL (0.55-1.30); GLUCOSE 164 mg/dL (70-99); POTASSIUM 3.7 mmol/L (3.5-5.1); SODIUM SERUM 139 mmol/L (136-145); UREA NITROGEN, BLOOD 20 mg/dL (8-21)
--- NOTE | 2019-06-20 08:00 | NUR ---
Note Pt assisted in sitting up bed for breakfast. No SOB/resp distress or pain/discomfort noted at this time. IV in right wrist intact and patent at this time. No needs noted. Call light within reach. Pt is next to nurses' station for close observation for needs and care.
[2019-06-20] MEDS: ASPIRIN 81 MG TAB.CHEW PO SCH (08:42)
[2019-06-20] MEDS: ENOXAPARIN SODIUM 30 MG/0.3 ML SYRINGE SUBCUT SCH (08:43)
--- NOTE | 2019-06-20 12:00 | NUR ---
Note Pt worked with PT - tolerated PT well. Pt resting sitting up in bed. No SOB/resp distress or pain/discomfort noted at this time. Call light within reach.
[2019-06-20] MEDS: AZITHROMYCIN 500 MG in NS 250 ML IV SCH (13:28)
[2019-06-20] MEDS: cefTRIAXone 1 GM in D5W 50 ML IV SCH (14:33)
--- NOTE | 2019-06-20 15:00 | NUR ---
Note Pt resting in bed - no needs noted at this time. Call light within reach.
--- NOTE | 2019-06-20 18:25 | NUR ---
Note Pt sitting up in bed eating her dinner. Pt was checked on q1' and PRN all shift for needs and care. No SOB/resp distress or pain/discomfort noted at this time. No needs noted at this time. Pt tries to get OOB - pt has been next to nurses' station all shift for close observation for needs and care. Pt maintained with safety precautions all shift. No needs noted all shift. Call light within reach.
--- NOTE | 2019-06-20 19:15 | NUR ---
change of shift.pt.presents quiescent affect;calm,somnolent.pt.arousable.pt.presents loc;confused.speech status;slurred;garbled. i access;intact.general status stable.respiratory status stable;unlabored @room air.call light/telephone w/in reach of the pt.
--- NOTE | 2019-06-20 20:00 | NUR ---
pt.assessed.v/s assessed:values w/in normal limits.pain mgx;flacc;pt.absent facial grimaces/body posturing.iv access intact;patent:lock. pt.assessed for cleanliness.pt.repositioned.general status stable.respiratory status stable;unlabored;02-sat%=96%@ room air.call light/ telephone placed w/in reach of the pt.family@bedside.
--- NOTE | 2019-06-20 20:30 | NUR ---
i have assessed the blood glucose;value;272mg/dl.
--- NOTE | 2019-06-20 21:00 | NUR ---
2100pmedications;no medications scheduled@this hour.i have administered insulin;humalo-units per the parameters sliding scale.
--- NOTE | 2019-06-20 22:00 | NUR ---
pt.assessed.pt.presents quiescent affect;calm,somnolent.pt.assessed for cleanliness.pt.repositioned.iv access;intact;patent; lock. general status stable.respiratory status stable;unlabored:02-sat%=96%.call light/telephone placed w/in reach of the pt.
--- NOTE | 2019-06-21 | NUR ---
pt.assessed.v/s assessed;values w/in normal limits.pt.assessed for cleanliness.pt.repositioned.iv access intact;patent. general status stable.respiratory status stable;unlabored;02-sat%=96%.call light/telephone placed w/in reach of the pt.
--- NOTE | 2019-06-21 02:00 | NUR ---
pt.assessed.pt.presents quiescent affect;calm,somnolent.pt.assessed for cleanliness.pt.repositioned.iv access intact;patent. general status stable.respiratory status stable unlabored:02-sat%=96%.call light/telephone placed w/in reach of the pt.
--- NOTE | 2019-06-21 04:00 | NUR ---
pt.assessed.pt.presents quiescent affect;clam,somnolent.pt.passed for cleanliness.pt.repositioned. iv access;intact;patent. general status stable.respiratory status stable.call light/telephone placed w/in reach of the pt.
--- NOTE | 2019-06-21 06:37 | NUR ---
pt assessed.pt.presents quiescent affect;calm,somnolent.pt.assessed for cleanliness.pt.cleaned.pt.repositioned.iv access intact;patent;lock. i have attended to the wound care;placed opti-foam dsgs x4 sites.general status stable.respiratory status stable;02-sat% =96%. call light/telephone placed w/in reach of the pt. Addendum: 06/21/19 at 0651 by Jamal Quiroga RN i have assessed the blood glucose;value;147mg/dl.
[2019-06-21 07:52] VITALS: BP_SYST 111
--- NOTE | 2019-06-21 08:00 | NUR ---
Note Pt assisted in sitting up in bed to eat her breakfast. No SOB/resp distress or pain/discomfort noted at this time. IV in right hand intact and patent. No needs noted. Call light within reach. Pt next to nurses' station for close observation for needs and care.
[2019-06-21] MEDS: ASPIRIN 81 MG TAB.CHEW PO SCH (08:34)
[2019-06-21] MEDS: ENOXAPARIN SODIUM 30 MG/0.3 ML SYRINGE SUBCUT SCH (08:37)
--- NOTE | 2019-06-21 08:44 | NUR ---
Pt note Attempted to have patient participate with therapy, patient refusing at this time; nursing made aware. Addendum: 06/21/19 at 1253 by Gina Banks PT PHYSICAL THERAPY CO-SIGN The Physical Therapy Progress Notes documented by Space And Storage Clerk have been reviewed. Reviewed/Co-Signed by: Gina Banks PT Documentation Done by:BORIS POLANCO PTA EXPLAINED RISKS OF BEDBOUND, BENEFITS OF THERAPY.
--- NOTE | 2019-06-21 10:00 | NUR ---
Note Dr Wang at pt's bedside assessing pt and orders for Hospice care were written. Pt sitting up in bed resting. No needs noted at this time. Pt calm and resting quietly at this time. Call light within reach.
[2019-06-21] MEDS: INSULIN LISPRO SLIDING SCALE 100 UNITS/ML VIAL (humaLOG) SUBCUT PRN (11:18)
[2019-06-21 12:48] VITALS: BP_SYST 128
--- NOTE | 2019-06-21 12:52 | NUR ---
PHYSICAL THERAPY CO-SIGN The Physical Therapy Progress Notes documented by Gin Operator have been reviewed. Reviewed/Co-Signed by: Gina Banks PT Documentation Done by:BORIS POLANCO PAPER CONTROL CLERK POC REVIEWED W/ PAPER CONTROL CLERK; EXPLAINED RISKS OF BEDBOUND, BENEFITS OF REHAB. Addendum: 06/21/19 at 1252 by Gina Banks PT Amended: Links added.
[2019-06-21] MEDS: AZITHROMYCIN 500 MG in NS 250 ML IV SCH (13:22)
--- NOTE | 2019-06-21 13:40 | NUR ---
Note Pt has HOB at 45' and has IVPB antibiotics running through right hand IV site. Pt denies any needs at this time. Call light within reach.
[2019-06-21] MEDS: cefTRIAXone 1 GM in D5W 50 ML IV SCH (15:40)
[2019-06-21 16:38] VITALS: BP_SYST 132
--- NOTE | 2019-06-21 17:02 | NUR ---
CHF PROTOCOL PT WILL GO TO SKILLED FACILITY, ATTENDING PHYSICIAN WILL SEE AND VISIT PATIENT IN NURSING FACILITY FOR CHF FOLLOW UP.
[2019-06-21 17:24] VITALS: BP_SYST 115
--- NOTE | 2019-06-21 17:55 | NUR ---
Note Received call from HCP pillowcase maker at 1650 stating that pt had a bed at [facility] - room 221A. internet sales manager stated that pt's son was called and notified and pt's son accepted transfer to [facility]. Pt was cleaned and given hygiene care. Mercer gown was put on and adult brief applied for incontinence. Foam dressing applied to coccyx for protection from incontinence of urine and stool all shift. [facility] called and report was given to Mary ZULETA at 1725. [facility] (on will call) was called and time set up for pickup at 1900 at this time. (Spoke to [facility]). Nursing packet ready and at nurses' station for pickup by [facility] EMT to give to [facility] staff for continuation of care. Called [facility] at 1743 and notified Hollie URIBE of pickup from hospital at 1900.
--- NOTE | 2019-06-21 18:40 | NUR ---
Note Pt resting in bed with orange gown and adult brief on. IV in right hand was sore and tender to touch, was removed at this time. No SOB/resp distress or pain/discomfort was noted at this time. No needs noted at this time. Call light within reach.
--- NOTE | 2019-06-21 19:10 | NUR ---
Note Pt off the floor via gurney with [facility] ambulance to [facility], with all her belongings and discharge packet. Pt stable.
== END 2019-06-21 19:10 | DRG 682 ==
LOC: SED 09:41 → STU 12:07 → SMU 06-19 23:39
PROVIDERS: ADMIT Internal Medicine; ATTEND Internal Medicine
DX: N17.9 Acute kidney failure, unspecified (principal); E43 Unspecified severe protein-calorie malnutrition; E87.1 Hypo-osmolality and hyponatremia; E87.2 Acidosis; I13.0 Hypertensive heart and chronic kidney disease with heart failure and stage 1 through stage 4 chronic kidney disease, or unspecified chronic kidney disease; F03.90 Unspecified dementia, unspecified severity, without behavioral disturbance, psychotic disturbance, mood disturbance, and anxiety; I50.9 Heart failure, unspecified; J44.9 Chronic obstructive pulmonary disease, unspecified; K21.9 Gastro-esophageal reflux disease without esophagitis; E78.5 Hyperlipidemia, unspecified; E87.6 Hypokalemia; N18.9 Chronic kidney disease, unspecified; R74.0 Nonspecific elevation of levels of transaminase and lactic acid dehydrogenase [LDH]; E11.22 Type 2 diabetes mellitus with diabetic chronic kidney disease; E11.65 Type 2 diabetes mellitus with hyperglycemia; Z82.49 Family history of ischemic heart disease and other diseases of the circulatory system; Z87.891 Personal history of nicotine dependence; Z79.84 Long term (current) use of oral hypoglycemic drugs; Z88.0 Allergy status to penicillin; Z79.82 Long term (current) use of aspirin; Z79.899 Other long term (current) drug therapy; Z68.26 Body mass index [BMI] 26.0-26.9, adult
CPT/HCPCS: 36415; 70450-TC; 71045; 76770; 80053; 80061; 80307; 81000-TC; 82150-TC; 82550-TC; 82553-TC; 82570-TC; 82962; 83605; 83690-TC; 83880; 83935-TC; 84302-TC; 84484; 85007; 85025; 85027; 85610-TC; 85730-TC; 87040-TC; 87081; 87086; 93005; 93306; 96361; 96365; 96368; 97110-GP; 97116-GP; 97530-GP; 99285; G0378; G0482; J0456; J0696; J1650; J1956; J3480; J7030; J7050; J7060